=== PATIENT | male | born 1980 | race Caucasian/White ===

== ENCOUNTER 2016-03-15 17:56 | Emergency (ER) | payer OTHER ==
[2016-03-15 18:09] VITALS: BP 132/86; PULSE 106; TEMP 97.7; BMI 20.7
[2016-03-15] MEDS ORDERED: PERMETHRIN 5% TOPICAL CREAM 60 GM TUBE TP ONE (19:17)
--- NOTE | 2016-03-15 19:23 | PDOC ---
History of Present Illness - General Chief Complaint: Itching Stated Complaint: ALLERGIC REACTION Time Seen by Provider: 03/15/16 19:01 History Source: Patient Exam Limitations: No Limitations - History of Present Illness Timing/Duration: reports: just prior to arrival Severity: Yes: mild Location: reports: extremities, torso Respiratory Risk Factors: reports: soaps, other (has been moving around) Modifying Factors: improves with: antihistamine, prednisone, scratching Associated Symptoms: reports: rash Past History - Past Medical History Allergies/Adverse Reactions: Allergies Allergy/AdvReac Type Severity Reaction Status Date / Time No Known Allergies Allergy Verified 03/15/16 18:09 Home Medications: Ambulatory Orders Clonazepam 0.5 mg PO BID #14 tablet 07/13/14 Quetiapine Fumarate [Seroquel] 25 mg PO DAILY 07/13/14 Sertraline HCl [Zoloft] 50 mg PO DAILY 07/13/14 Cardiac Disorders: Yes (IRREG HEART BEAT) Psychiatric Problems: Yes (OCD, PANIC ATTACKS, DEPRESSION) - Immunization History Immunization Up to Date: Yes - Psycho/Social/Smoking Cessation Hx Anxiety: Yes Suicidal Ideation: No Smoking History: Current every day smoker Have you smoked in the past 12 months: No Number of Cigarettes Smoked Daily: 4 Information on smoking cessation initiated: No Hx Alcohol Use: No Drug/Substance Use Hx: No Substance Use Type: None Review of Systems - Review of Systems Constitutional: No: Symptoms Reported HEENTM: No: Symptoms Reported Respiratory: No: Symptoms reported, Cough Cardiac (ROS): Yes: Symptoms Reported ABD/GI: No: Symptoms Reported : No: Symptoms Reported Musculoskeletal: No: Other Integumentary: Yes: Rash *Physical Exam - Vital Signs Last Vital Signs Temp Pulse Resp BP Pulse Ox 97.7 F 106 H 20 132/86 99 03/15/16 18:05 03/15/16 18:05 03/15/16 18:05 03/15/16 18:05 03/15/16 18:05 - Physical Exam General Appearance: Yes: Appropriately Dressed. No: Apparent Distress HEENT: positive: TMs Normal. negative: Pharynx Normal, Nasal Congestion, Rhinorrhea Neck: positive: Supple. 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
== END 2016-03-15 20:11 | disposition home or self-care (01) ==
LOC: JERFT 17:56
DX: B86 Scabies (principal); F42.9 Obsessive-compulsive disorder, unspecified; F32.9 Major depressive disorder, single episode, unspecified; F41.0 Panic disorder [episodic paroxysmal anxiety]; F17.210 Nicotine dependence, cigarettes, uncomplicated
CPT/HCPCS: 99281-25

== ENCOUNTER 2020-02-17 19:18 | Emergency (ER) | payer OTHER ==
[2020-02-17 19:30] VITALS: BP 133/88; PULSE 121; TEMP 99.6; BMI 25.0
[2020-02-17] MEDS ORDERED: IBUPROFEN 600 MG TABLET (FP) PO ONE ×2 (20:29→20:32)
== END 2020-02-17 21:25 | disposition home or self-care (01) ==
LOC: JER 19:18
DX: Z11.59 Encounter for screening for other viral diseases (principal)
CPT/HCPCS: 87070; 87880; 99284-25; C9803; U0003

== ENCOUNTER 2021-12-07 01:06 | Emergency (ER) | payer OTHER ==
[2021-12-07 01:15] VITALS: BP 140/80; PULSE 98; RESP 18; TEMP 97.8; BMI 23.8
[2021-12-07 01:45] LABS: EPI CELLS 4 /uL (0-25.1); HYALINE CASTS 0 /uL (0-3.1); PH,URINE 5.5 (5.0-8.0); URINE APPEARANCE CLEAR; URINE BACTERIA 3 /uL (0-1359); URINE BILIRUBIN NEGATIVE (NEGATIVE); URINE COLOR YELLOW; URINE GLUCOSE (UA) NEGATIVE (NEGATIVE); URINE KETONE NEGATIVE (NEGATIVE); URINE LEUK ESTERASE NEGATIVE (NEGATIVE); URINE NITRITE NEGATIVE (NEGATIVE); URINE PROTEIN NEGATIVE (NEGATIVE); URINE RBC 82 /uL (0-23.9); URINE UROBILINOGEN 0.2 mg/dL (0.2-1.0); URINE WBC 5 /uL (0-25.8)
[2021-12-07 10:40] LABS: SYPHILIS W/ RPR CONF NON-REACTIVE (NONREACTIVE)
[2021-12-07 11:10] LABS: HIV INTERPRETATION NEGATIVE (NEGATIVE)
== END 2021-12-07 02:38 | disposition home or self-care (01) ==
LOC: JER 01:06
PROC: 3E023GC Introduction of Other Therapeutic Substance into Muscle, Percutaneous Approach (ICD-10-PCS; principal; 2021-12-07)
DX: N34.2 Other urethritis (principal)
CPT/HCPCS: 36415; 81003; 86780; 87086; 87389; 87491; 87591; 99284-25

== ENCOUNTER 2022-07-06 20:54 | Emergency (ER) | payer OTHER ==
[2022-07-06 21:03] VITALS: BP 138/91; PULSE 111; RESP 18; TEMP 98; BMI 25.5
== END 2022-07-06 22:36 | disposition home or self-care (01) ==
LOC: JER 20:54 → JERFT 20:54
DX: Z76.0 Encounter for issue of repeat prescription (principal)
CPT/HCPCS: 99281-25